=== PATIENT | female | born 2000 | race Caucasian/White ===

== ENCOUNTER 2022-04-26 12:43 | Emergency (ER) | payer MEDICAID, MEDICARE ==
[~2022-04-26] VITALS: Ht 162.6 cm; Wt 53.1 kg
[2022-04-26 12:48] VITALS: BP 106/61
--- NOTE | 2022-04-26 13:31 | NUR ---
URINE COLLECTED, DIPSTICKED, UPREG COMPLETED. DIPSTICK RESULT READ BY KORINA
[2022-04-26] MEDS ORDERED: NACL 0.9% 1,000 ML IV SCH (13:35)
[2022-04-26] MEDS ORDERED: ONDANSETRON 4 MG/2 ML VIAL IVP ONE (13:35)
[2022-04-26] MEDS ORDERED: KETOROLAC 30 MG/ML VIAL IVP ONE (13:35)
--- NOTE | 2022-04-26 13:35 | NUR ---
Note undone in EDM - 04/26/22 at 1608 by [email or web address] 21 Y/O FEMALE C/O LLQ ABDOMINAL/PELVIC PAIN X3 DAYS. DENIES NAUSEA/VOMITING. DENIES DYSURIA. PT REPORTS TAKING TYLENOL WITHOUT RELIEF. ABD IS FLAT, SOFT, AND TENDER ON PALPATION. PT REPORTS PAIN IS THROBBING LIKE AND RADIATES TO BACK. PT A/O X4 WITH EVEN AND UNLABORED RESPIRATIONS PMH: MITRAL VALVE SURGERY NKA
--- NOTE | 2022-04-26 13:35 | NUR ---
21 Y/O FEMALE C/O LLQ ABDOMINAL/PELVIC PAIN X3 DAYS. PT REPORT NAUSEA BUTDENIES VOMITING/DIARRHEA. DENIES DYSURIA. PT REPORTS TAKING TYLENOL WITHOUT RELIEF. ABD IS FLAT, SOFT, AND TENDER ON PALPATION. PT REPORTS PAIN IS THROBBING LIKE AND RADIATES TO BACK. PT A/O X4 WITH EVEN AND UNLABORED RESPIRATIONS PMH: MITRAL VALVE SURGERY NKA
--- NOTE | 2022-04-26 13:40 | NUR ---
21 G IV ESTABLISHED TO R AC. BLOOD COLLECTED VUA IV AND HANDED TO ROLL MECHANIC
[2022-04-26 13:42] LABS: APPEARANCE,URINE SL CLOUDY (CLEAR); BILIRUBIN,URINE NEGATIVE (NEGATIVE); BLOOD, URINE NEGATIVE (NEGATIVE); COLOR,URINE YELLOW (YELLOW); LEUKOCYTE ESTERASE ,URINE 2+ (NEGATIVE); NITRITE, URINE NEGATIVE (NEGATIVE); PH,URINE 6.5 (5.0-9.0); UGLUCOSE NEGATIVE (NEGATIVE)
[2022-04-26 13:51] LABS: BASOPHILS % (AUTO) 0.8 % (0.0-2.0); EOSINOPHILS % (AUTO) 0.6 % (0.0-4.0); HEMATOCRIT 37.4 % (36-48); HEMOGLOBIN 12.6 g/dL (12.0-16.0); LYMPHOCYTES # (AUTO) 2.2 K/uL (2.5-16.5); LYMPHOCYTES % (AUTO) 41.3 % (20.5-51.1); MEAN CORPUSCULAR HEMOGLOBIN 31 pg (27-31); MEAN CORPUSCULAR HGB CONC 34 g/dL (33-37); MEAN CORPUSCULAR VOLUME 90.9 fL (80-94); MONOCYTES # (AUTO) 0.4 K/uL (0.8-1.0); MONOCYTES % (AUTO) 8.3 % (1.7-9.3); NEUTROPHILS # (AUTO) 2.7 K/uL (1.8-7.7); PLATELET COUNT (AUTO) 201 K/uL (140-450); RED BLOOD CELL COUNT(AUTO) 4.12 MIL/uL (4.20-5.40); RED CELL DISTRIBUTION WIDTH 12.8 % (11.6-13.7); WHITE BLOOD COUNT (AUTO) 5.4 K/uL (4.5-11.0)
[2022-04-26 13:56] LABS: RBC,URINE 0-5 /HPF (0-5)
[2022-04-26 13:58] LABS: OTHER CASTS, URINE None Seen /LPF (None Seen)
[2022-04-26 14:11] LABS: ALBUMIN 4.2 g/dL (3.4-5.0); ANION GAP 10.9 (8-16); CARBON DIOXIDE 26.8 mmol/L (21-32); CREATININE 0.7 mg/dL (0.6-1.3); POTASSIUM 3.7 mmol/L (3.5-5.1); TOTAL BILIRUBIN 0.3 mg/dL (0.0-1.0)
--- NOTE | 2022-04-26 14:38 | NUR ---
PT TAKEN TO CT VIA W/C
--- NOTE | 2022-04-26 14:50 | NUR ---
PT BACK FROM CT
[2022-04-26] MEDS ORDERED: PYR100 PO (15:31)
[2022-04-26] MEDS ORDERED: CEPH-588 PO (15:31)
[2022-04-26] MEDS ORDERED: IBUP-2213 PO (15:31)
--- NOTE | 2022-04-26 15:34 | NUR ---
PT RESTING IN BED, PT DENIES PAIN AT THIS TIME. WILL CONTINUE TO MONITOR
--- NOTE | 2022-04-26 15:35 | NUR ---
DR ALLAN AT BEDSIDE
[2022-04-26] MEDS ORDERED: cephALEXin 500 MG CAP PO ONE (15:40)
[2022-04-26 16:04] VITALS: BP 97/59
--- NOTE | 2022-04-26 16:04 | NUR ---
Patient discharged with v/s stable. Written and verbal after care instructions ABOUT PELVIC PAIN AND OVARIAN CYST given and explained. Patient alert, oriented and verbalized understanding of instructions. Ambulatory with steady gait. All questions addressed prior to discharge. ID band removed. Patient advised to follow up with PMD. Rx of KEFLEX, IBUPROFEN, PYRIDIUM given. Patient educated on indication of medication including possible reaction and side effects. Opportunity to ask questions provided and answered.
== END 2022-04-26 16:04 | disposition home or self-care (01) ==
LOC: MED 12:43
DX: N39.0 Urinary tract infection, site not specified (principal)
CPT/HCPCS: 36415; 74177; 80053; 81001; 81025; 83690; 85025; 87086; 96361; 96374; 96375; 99285; J1885; J2405; J7030; Q9967